=== PATIENT | female | born 1965 | race African-American/Black ===

== ENCOUNTER 2017-06-24 07:50 | Emergency (ER) | payer BC ==
[~2017-06-24] VITALS: Ht 167.6 cm; Wt 81.0 kg
[~2017-06-24 07:50] MED LIST: ADLT ASA LOW81 MG PO; HYDROCHLOROT25 MG PO; LEVOTHROID50 MCG PO; LEVOTHYROXIN50 MC1 PO; PRAVACHOL20 MG PO; PRILOSEC OTC20 MG OR; ULTRAM50 MG OR; ZPAK PO
[2017-06-24 08:53] LABS: INFLUENZA A NONE DETECTED (NONE DETECT); INFLUENZA B NONE DETECTED (NONE DETECT)
[2017-06-24] MEDS ORDERED: AMOXICILLIN500 M2 PO (09:13)
[2017-06-24 09:23] VITALS: BP 135/77
== END 2017-06-24 09:23 | disposition home or self-care (01) | DRG 153 ==
LOC: ED 07:50
PROVIDERS: Emergency Medicine
DX: J02.0 Streptococcal pharyngitis (principal); I10 Essential (primary) hypertension

== ENCOUNTER → 2018-08-12 | Outpatient (REF) | payer BC ==
[~2018-08-12] MED LIST changes: +AMOXICILLIN500 M2 PO
== END | disposition home or self-care (01) | DRG 951 ==
LOC: MAMMO 07-30 08:30
PROVIDERS: ATTEND Internal Medicine
DX: Z12.31 Encounter for screening mammogram for malignant neoplasm of breast (principal); N95.1 Menopausal and female climacteric states